=== PATIENT | male | born 1985 | race African-American/Black ===

== ENCOUNTER 2023-07-19 15:57 | Emergency (ER) | payer SELFPAY ==
[~2023-07-19] VITALS: Ht 165.1 cm; Wt 65.0 kg
[2023-07-19 16:04] VITALS: O2SAT 99
[2023-07-19] MEDS ORDERED: KETOROLAC 30MG/ML VIAL IV STA (18:34)
[2023-07-19] MEDS: SODIUM CHLORIDE 0.9% 1,000 ML IV ONE (18:45)
[2023-07-19] MEDS ORDERED: METOCLOPRAMIDE HCL 10MG/2ML VIAL IV ONE (18:45)
[2023-07-19] MEDS ORDERED: DIPHENHYDRAMINE 50MG/ML VIAL IV ONE (18:45)
[2023-07-19 19:16] LABS: BASOPHILS % 0.4 % (0.0-2.0); HEMATOCRIT. 49.3 % (42.0-52.0); HEMOGLOBIN. 16.6 g/dL (14.0-18.0); LYMPHOCYTES % 7.8 % (20.0-50.0); MEAN CORPUSCULAR HEMOGLOBIN 28.3 pg (28.0-32.0); MEAN CORPUSCULAR HGB CONC 33.7 g/dL (31.0-37.0); MEAN CORPUSCULAR VOLUME 84.1 fL (80.0-94.0); MEAN PLATELET VOLUME 8.1 fl (7.4-10.4); MONOCYTES % 3.3 % (2.0-8.0); NEUTROPHILS % 88.5 % (40.0-76.0); PLATELET 263 x1000/uL (130-400); RED BLOOD CELL COUNT 5.86 mill/uL (4.7-6.1); RED CELL DISTRIBUTION WIDTH 13.5 % (11.6-14.6); WHITE BLOOD COUNT 7.4 x1000/uL (4.5-11.0)
[2023-07-19 19:17] LABS: CHLORIDE 105 mEq/L (98-107); POTASSIUM 3.8 mEq/L (3.5-5.1); SODIUM 137 mEq/L (136-145)
[2023-07-19 19:18] LABS: CALCIUM 10.7 mg/dL (8.7-10.4); CARBON DIOXIDE 25 mEq/L (21-32)
[2023-07-19 19:20] LABS: PROTHROMBIN TIME 11.3 sec (9.6-11.0)
[2023-07-19 19:23] LABS: CREATININE 0.9 mg/dL (0.6-1.3); GLUCOSE 126 mg/dL (70-105); UREA NITROGEN BLOOD 6 mg/dL (9-23)
[2023-07-19 19:25] LABS: ALANINE AMINOTRANSFERASE 22 IU/L (10-49); ALBUMIN 5.3 g/dL (3.2-4.8); ASPARTATE AMINOTRANSFERASE 24 IU/L (<34); BILIRUBIN DIRECT 0.3 mg/dL (<=3.0)
[2023-07-19 19:26] LABS: PROTEIN TOTAL 8.1 g/dL (6.0-8.3)
[2023-07-19 19:27] LABS: ETHANOL BLOOD < 10 mg/dL (<10)
[2023-07-19 20:39] VITALS: TEMP 99.7
[2023-07-19 20:45] VITALS: BP 189/109; PULSE 52; RESP 16
[2023-07-19] MEDS: KETOROLAC 30MG/ML VIAL IV NR (20:45)
[2023-07-19] MEDS: METOCLOPRAMIDE HCL 10MG/2ML VIAL IV NR (20:45)
[2023-07-19] MEDS: DIPHENHYDRAMINE 50MG/ML VIAL IV NR (20:45)
[2023-07-19] MEDS ORDERED: IBUP-2029 MT (22:34)
[2023-07-19] MEDS ORDERED: METO5TAB86 MT (22:34)
[2023-07-19] MEDS: ONDANSETRON HCL 4MG/2ML INJ IV ONE ×2 (22:41→22:50)
== END 2023-07-19 22:45 | disposition home or self-care (01) ==
LOC: ER 15:57
DX: G43.909 Migraine, unspecified, not intractable, without status migrainosus (principal); I48.91 Unspecified atrial fibrillation; I10 Essential (primary) hypertension
CPT/HCPCS: 80076; 80048; 80320; 83690; 85025; 85610; 36415; 70450; 96361; 96374; 96375; 99285; J1200; J1885; J2765; J2405; J7030; Z7610 ×2; G0480

== ENCOUNTER 2024-01-13 19:00 | Inpatient (IN) | payer BC, MEDICAID ==
[~2024-01-13] VITALS: Ht 185.4 cm; Wt 102.1 kg
[~2024-01-13 19:00] MED LIST: IBUP-2029 MT; METO-293 MT; METO-539 MT; METO5TAB86 MT; MIRT-144 MT; NIFE-33 MT; ONDA-241 MT; PANT40TA51 PO
[2024-01-13] MEDS: PANTOPRAZOLE SODIUM 40 MG/VIAL IV SCH (19:54)
[2024-01-13] MEDS: ONDANSETRON HCL 4MG/2ML INJ IV ONE (19:54)
[2024-01-13] MEDS: SODIUM CHLORIDE 0.9% 1,000 ML IV ONE (19:58)
[2024-01-13 20:04] LABS: BASOPHILS % 0.9 % (0.0-2.0); EOSINOPHILS % 0.2 % (0.0-5.0); HEMATOCRIT. 48.6 % (42.0-52.0); HEMOGLOBIN. 16.1 g/dL (14.0-18.0); LYMPHOCYTES % 14.6 % (20.0-50.0); MEAN CORPUSCULAR HEMOGLOBIN 28.4 pg (28.0-32.0); MEAN CORPUSCULAR HGB CONC 33.1 g/dL (31.0-37.0); MEAN CORPUSCULAR VOLUME 85.8 fL (80.0-94.0); MEAN PLATELET VOLUME 8.1 fl (7.4-10.4); MONOCYTES % 5.5 % (2.0-8.0); NEUTROPHILS % 78.8 % (40.0-76.0); PLATELET 293 x1000/uL (130-400); RED BLOOD CELL COUNT 5.66 mill/uL (4.7-6.1); RED CELL DISTRIBUTION WIDTH 13.8 % (11.6-14.6); WHITE BLOOD COUNT 7.5 x1000/uL (4.5-11.0)
[2024-01-13 20:07] LABS: CHLORIDE 107 mEq/L (98-107); POTASSIUM 3.5 mEq/L (3.5-5.1); SODIUM 139 mEq/L (136-145)
[2024-01-13 20:08] LABS: CARBON DIOXIDE 21 mEq/L (21-32)
[2024-01-13 20:09] LABS: CALCIUM 9.8 mg/dL (8.7-10.4)
[2024-01-13 20:13] LABS: CREATININE 0.9 mg/dL (0.6-1.3); GLUCOSE 127 mg/dL (70-105)
[2024-01-13 20:14] LABS: PROTHROMBIN TIME 11.2 sec (9.6-11.0); UREA NITROGEN BLOOD 7 mg/dL (9-23)
[2024-01-13 20:36] LABS: ETHANOL BLOOD < 10 mg/dL (<10)
[2024-01-13] MEDS: MORPHINE SULFATE 4 MG/ML INJ (FOR IV/IM USE) IV ONE (20:41)
[2024-01-13] MEDS: HYDRALAZINE 20MG/ML VIAL IV ONE (20:42)
[2024-01-13] MEDS: CLONIDINE 0.1MG TABLET PO ONE (20:42)
[2024-01-13] MEDS: METOCLOPRAMIDE HCL 10MG/2ML VIAL IV ONE (22:30)
[2024-01-13] MEDS: NITROGLYCERIN 0.1MG/HR PATCH TOP ONE (22:31)
[2024-01-13] MEDS: HYDROMORPHONE HCL/PF 2MG/ML INJ IV ONE (22:31)
[2024-01-13] MEDS: NITROGLYCERIN 0.4MG TABLET SL SL NR (22:31)
[2024-01-13] MEDS: NITROGLYCERIN SPRAY/4.9GM CAN TL ONE (22:32)
[2024-01-14 00:50] VITALS: BP 123/81; PULSE 86; RESP 18; TEMP 36.61404; TEMP 36.6404; O2SAT 98
[2024-01-14] MEDS ORDERED: CLONIDINE 0.1MG TABLET PO PRN (01:45)
[2024-01-14] MEDS ORDERED: NON FORMULARY MED XX SCH (01:45)
[2024-01-14] MEDS ORDERED: METOCLOPRAMIDE HCL 10MG TABLET PO PRN (01:45)
[2024-01-14] MEDS ORDERED: HYDR25TA PO (01:49)
[2024-01-14] MEDS ORDERED: LISI30TA36 PO ×2 (01:49)
[2024-01-14] MEDS ORDERED: SUCR1TAB PO (01:49)
[2024-01-14] MEDS: PIPERACILLIN/TAZO 3.375G/50ML 50 ML IV SCH (03:44)
[2024-01-14 04:00] VITALS: BP 108/75; PULSE 87; RESP 20; TEMP 36.78072; O2SAT 98
[2024-01-14] MEDS: ACETAMINOPHEN 325MG TABLET PO PRN (05:10)
[2024-01-14] MEDS: ONDANSETRON HCL 4MG/2ML INJ IV PRN (06:16)
[2024-01-14] MEDS ORDERED: PANTOPRAZOLE 40MG DR TABLET PO SCH (07:40)
[2024-01-14 08:00] VITALS: BP 144/92; PULSE 66; RESP 20; TEMP 36.78072; O2SAT 100
[2024-01-14] MEDS: SUCRALFATE 1G TABLET PO SCH (09:36)
[2024-01-14] MEDS: LISINOPRIL 10MG TABLET PO SCH (09:37)
[2024-01-14] MEDS: ENOXAPARIN 40MG/0.4ML SYR SUBCUT SCH (09:37)
[2024-01-14] MEDS: NIFEDIPINE XL 30MG TAB PO SCH (09:38)
[2024-01-14] MEDS: HYDROCHLOROTHIAZIDE 25MG TABLET PO SCH (09:39)
[2024-01-14] MEDS: METOPROLOL TARTRATE 50MG TABLET PO SCH (09:40)
[2024-01-14 10:57] LABS: BASOPHILS % 0.2 % (0.0-2.0); HEMATOCRIT. 47.2 % (42.0-52.0); HEMOGLOBIN. 15.1 g/dL (14.0-18.0); LYMPHOCYTES % 9.1 % (20.0-50.0); MEAN CORPUSCULAR HEMOGLOBIN 27.2 pg (28.0-32.0); MEAN CORPUSCULAR HGB CONC 32.1 g/dL (31.0-37.0); MEAN PLATELET VOLUME 7.7 fl (7.4-10.4); NEUTROPHILS % 84.7 % (40.0-76.0); PLATELET 312 x1000/uL (130-400); RED BLOOD CELL COUNT 5.56 mill/uL (4.7-6.1); RED CELL DISTRIBUTION WIDTH 13.8 % (11.6-14.6); WHITE BLOOD COUNT 10.3 x1000/uL (4.5-11.0)
[2024-01-14 11:05] LABS: CHLORIDE 105 mEq/L (98-107)
[2024-01-14 11:06] LABS: CARBON DIOXIDE 24 mEq/L (21-32); POTASSIUM 3.4 mEq/L (3.5-5.1); SODIUM 138 mEq/L (136-145)
[2024-01-14 11:07] LABS: CALCIUM 9.7 mg/dL (8.7-10.4)
[2024-01-14 11:11] LABS: CREATININE 0.9 mg/dL (0.6-1.3)
[2024-01-14 11:12] LABS: GLUCOSE 108 mg/dL (70-105); UREA NITROGEN BLOOD 6 mg/dL (9-23)
[2024-01-14] MEDS: METOCLOPRAMIDE HCL 10MG/2ML VIAL IV PRN (11:44)
[2024-01-14 11:49] VITALS: BP 158/104; PULSE 60; RESP 18; TEMP 36.61404; O2SAT 97
[2024-01-14] MEDS ORDERED: HYDRALAZINE 20MG/ML VIAL IV PRN (13:30)
[2024-01-14 15:58] VITALS: BP 144/114; PULSE 79; RESP 18; TEMP 36.72516; O2SAT 99
[2024-01-14 20:00] VITALS: BP 150/84; PULSE 89; RESP 20; TEMP 36.89184; O2SAT 95
[2024-01-14] MEDS: MIRTAZAPINE 15MG TABLET PO PRN (20:06)
[2024-01-14] MEDS: INFLUENZA VACCINE 05/PF 0.5 ML SYRINGE IM ONE (20:10)
[2024-01-14 21:07] LABS: CLARITY URINE CLEAR (CLEAR); COLOR URINE YELLOW (YELLOW); GLUCOSE URINE NEGATIVE (NEGATIVE); KETONES URINE 1+ (NEGATIVE); LEUKOCYTE ESTERASE URINE NEGATIVE (NEGATIVE); NITRITE URINE NEGATIVE (NEGATIVE); OCCULT BLOOD URINE NEGATIVE (NEGATIVE); PROTEIN URINE NEGATIVE (NEGATIVE); SPECIFIC GRAVITY URINE 1.022 (1.005-1.030); UROBILINOGEN URINE 0.2 E.U./dL (0.2-1.0)
[2024-01-14 21:24] LABS: *AMPHETAMINES SCREEN URINE NEGATIVE (NEGATIVE); *BARBITURATES SCREEN URINE NEGATIVE (NEGATIVE); *BENZODIAZEPINES SCREEN URINE NEGATIVE (NEGATIVE); *COCAINE SCREEN URINE NEGATIVE (NEGATIVE); CANNABINOID URINE SCREEN PRESUMPTIVE POSITIVE (NEGATIVE); ECSTASY MDMA SCREEN URINE NEGATIVE (NEGATIVE); METHADONE URINE SCREEN NEGATIVE (NEGATIVE); OPIATES URINE SCREEN PRESUMPTIVE POSITIVE (NEGATIVE); PHENCYCLIDINE URINE SCREEN NEGATIVE (NEGATIVE)
[2024-01-15] VITALS: BP 123/75; PULSE 74; RESP 18; TEMP 36.78072; O2SAT 98
[2024-01-15 04:00] VITALS: BP 146/103; PULSE 70; RESP 20; TEMP 36.50292; O2SAT 99
[2024-01-15 08:00] VITALS: BP 144/96; PULSE 78; RESP 18; TEMP 37.89192; O2SAT 97
[2024-01-15 12:00] VITALS: BP 141/89; PULSE 66; RESP 18; TEMP 37.2252; TEMP 37.22520; O2SAT 97
[2024-01-15 15:54] VITALS: BP 141/89; PULSE 66; TEMP 99; O2SAT 97
== END 2024-01-15 16:45 | disposition home or self-care (01) | DRG 241 ==
LOC: ER 19:00 → EDBEDREQ 22:08 → 7WST 22:37 → EDBEDREQ 22:50 → EDBEDREQTM 22:50
PROVIDERS: ADMIT Internal Medicine; ATTEND Internal Medicine
DX: K29.20 Alcoholic gastritis without bleeding (principal); G89.29 Other chronic pain; I16.0 Hypertensive urgency; K21.9 Gastro-esophageal reflux disease without esophagitis; K27.9 Peptic ulcer, site unspecified, unspecified as acute or chronic, without hemorrhage or perforation; I48.0 Paroxysmal atrial fibrillation; I10 Essential (primary) hypertension; R07.89 Other chest pain; Z71.51 Drug abuse counseling and surveillance of drug abuser
CPT/HCPCS: 36415; 80048; 80305; 80320; 81003; 85025; 90686; 99285; J0360; J1171; J1650; J2270; J2405; J2470; J2543; J2765; J7030; G0480

== ENCOUNTER 2024-02-06 20:19 | Emergency (ER) | payer BC ==
[~2024-02-06] VITALS: Ht 182.9 cm; Wt 114.0 kg
[~2024-02-06 20:19] MED LIST changes: +HYDR25TA PO; +LISI30TA36 PO; +SUCR1TAB PO
[2024-02-06 20:22] VITALS: O2SAT 96
[2024-02-06] MEDS: ACETAMINOPHEN 325MG TABLET PO STA (20:54)
[2024-02-06] MEDS: KETOROLAC 30MG/ML VIAL IV STA (20:54)
[2024-02-06] MEDS: ONDANSETRON HCL 4MG/2ML INJ IV STA (20:54)
[2024-02-06] MEDS: SODIUM CHLORIDE 0.9% 1,000 ML IV ONE (21:05)
[2024-02-06 21:21] LABS: BASOPHILS % 0.8 % (0.0-2.0); DIFFERENTIAL COMMENT 1; HEMATOCRIT. 49.2 % (42.0-52.0); HEMOGLOBIN. 16.6 g/dL (14.0-18.0); LYMPHOCYTES % 10.9 % (20.0-50.0); MEAN CORPUSCULAR HEMOGLOBIN 28.2 pg (28.0-32.0); MEAN CORPUSCULAR HGB CONC 33.7 g/dL (31.0-37.0); MEAN CORPUSCULAR VOLUME 83.5 fL (80.0-94.0); MONOCYTES % 3.8 % (2.0-8.0); NEUTROPHILS % 84.5 % (40.0-76.0); PLATELET 314 x1000/uL (130-400); RED CELL DISTRIBUTION WIDTH 13.7 % (11.6-14.6); WHITE BLOOD COUNT 6.7 x1000/uL (4.5-11.0)
[2024-02-06 21:27] LABS: CHLORIDE 105 mEq/L (98-107); POTASSIUM 3.5 mEq/L (3.5-5.1); SODIUM 139 mEq/L (136-145)
[2024-02-06 21:28] LABS: CALCIUM 10.2 mg/dL (8.7-10.4); CARBON DIOXIDE 22 mEq/L (21-32)
[2024-02-06 21:31] LABS: INR 1.1; PROTHROMBIN TIME 11.9 sec (9.6-11.0)
[2024-02-06 21:33] LABS: CREATININE 0.8 mg/dL (0.6-1.3); GLUCOSE 115 mg/dL (70-105); UREA NITROGEN BLOOD 8 mg/dL (9-23)
[2024-02-06 21:35] LABS: ALANINE AMINOTRANSFERASE 42 IU/L (10-49); ALBUMIN 5.4 g/dL (3.2-4.8); ASPARTATE AMINOTRANSFERASE 34 IU/L (<34); BILIRUBIN DIRECT 0.2 mg/dL (<=3.0); BILIRUBIN TOTAL 0.7 mg/dL (0.1-1.0); PROTEIN TOTAL 8.7 g/dL (6.0-8.3)
[2024-02-06 21:41] LABS: TROPONIN I HIGH SENSITIVITY < 4 ng/L (3.0-53)
[2024-02-06 22:30] VITALS: BP 182/99; PULSE 77; RESP 20; TEMP 36.89184; O2SAT 98
[2024-02-06] MEDS: MAGNESIUM/ALUMINUM HYDROXIDE/SIMETHICONE 30ML UDC PO ONE (23:07)
[2024-02-06] MEDS: ONDANSETRON 4MG ODT PO ONE (23:07)
[2024-02-06 23:53] LABS: TROPONIN I HIGH SENSITIVITY < 4 ng/L (3.0-53)
[2024-02-07] MEDS ORDERED: ONDA-239 PO (00:02)
== END 2024-02-07 00:58 | disposition home or self-care (01) ==
LOC: ER 20:19
DX: K52.9 Noninfective gastroenteritis and colitis, unspecified (principal); I48.91 Unspecified atrial fibrillation; I11.9 Hypertensive heart disease without heart failure; Z79.899 Other long term (current) drug therapy
CPT/HCPCS: 80076; 80048; 83690; 85025; 85610; 84484; 36415; 71045; 74176; 93005; 96361; 96374; 96375; 99285; Q0162; J1885; J2405; J7030; Z7610 ×2

== ENCOUNTER 2024-09-29 14:34 | Emergency (ER) | payer BC ==
[~2024-09-29] VITALS: Ht 188 cm; Wt 100.0 kg
[~2024-09-29 14:34] MED LIST changes: +ONDA-239 PO
[2024-09-29 14:36] VITALS: O2SAT 99
[2024-09-29] MEDS: MORPHINE SULFATE 4 MG/ML INJ (FOR IV/IM USE) IV ONE (15:15)
[2024-09-29] MEDS: METOCLOPRAMIDE HCL 10MG/2ML VIAL IV ONE (15:15)
[2024-09-29] MEDS: ONDANSETRON HCL 4MG/2ML INJ IV ONE (15:15)
[2024-09-29] MEDS: SODIUM CHLORIDE 0.9% 1,000 ML IV ONE (15:16)
[2024-09-29 15:51] LABS: BASOPHILS % 0.5 % (0.0-2.0); EOSINOPHILS % 0.2 % (0.0-5.0); HEMATOCRIT. 47.4 % (42.0-52.0); HEMOGLOBIN. 16.3 g/dL (14.0-18.0); LYMPHOCYTES % 15.2 % (20.0-50.0); MEAN PLATELET VOLUME 7.8 fl (7.4-10.4); MONOCYTES % 7.0 % (2.0-8.0); NEUTROPHILS % 77.1 % (40.0-76.0); PLATELET 288 x1000/uL (130-400); RED BLOOD CELL COUNT 5.77 mill/uL (4.7-6.1); RED CELL DISTRIBUTION WIDTH 14.1 % (11.6-14.6)
[2024-09-29 16:03] LABS: INR 1.1
[2024-09-29 16:12] LABS: CREATININE 0.9 mg/dL (0.6-1.3)
[2024-09-29 16:13] LABS: ETHANOL BLOOD < 10 mg/dL (<10); TROPONIN I HIGH SENSITIVITY < 4 ng/L (3.0-53); UREA NITROGEN BLOOD 6 mg/dL (9-23)
[2024-09-29 16:14] LABS: ASPARTATE AMINOTRANSFERASE 23 IU/L (<34)
[2024-09-29 16:15] LABS: BILIRUBIN DIRECT 0.2 mg/dL (<=3.0); BILIRUBIN TOTAL 0.8 mg/dL (0.1-1.0); PROTEIN TOTAL 7.7 g/dL (6.0-8.3)
[2024-09-29 18:30] VITALS: TEMP 36.9
[2024-09-29 19:07] LABS: *AMPHETAMINES SCREEN URINE NEGATIVE (NEGATIVE); *BARBITURATES SCREEN URINE NEGATIVE (NEGATIVE); *BENZODIAZEPINES SCREEN URINE NEGATIVE (NEGATIVE); *COCAINE SCREEN URINE NEGATIVE (NEGATIVE); CANNABINOID URINE SCREEN PRESUMPTIVE POSITIVE (NEGATIVE); ECSTASY MDMA SCREEN URINE NEGATIVE (NEGATIVE); METHADONE URINE SCREEN NEGATIVE (NEGATIVE); OPIATES URINE SCREEN PRESUMPTIVE POSITIVE (NEGATIVE); PHENCYCLIDINE URINE SCREEN NEGATIVE (NEGATIVE)
[2024-09-29 19:31] LABS: TROPONIN I HIGH SENSITIVITY < 4 ng/L (3.0-53)
[2024-09-29] MEDS: CLONIDINE 0.1MG TABLET PO ONE (19:37)
[2024-09-29 20:25] VITALS: BP 158/87; PULSE 81; RESP 16; O2SAT 99
[2024-09-29] MEDS ORDERED: IOHEXOL-350 100 ML BOTTLE ONE (21:04)
== END 2024-09-29 20:28 | disposition home or self-care (01) ==
LOC: ER 14:34 → EDBEDREQTM 16:18 → EDBEDREQ 16:18 → ENRESERV 17:35 → CANRESERV 17:35 → ENRESERV 17:54 → CANRESERV 17:54 → CANBEDREQ 19:45 → ER 20:28
DX: R07.89 Other chest pain (principal); I10 Essential (primary) hypertension; Z79.899 Other long term (current) drug therapy
CPT/HCPCS: 80076; 80305; 80048; 80320; 83690; 83735; 85025; 85379; 85610; 85730; 84484; 36415; 71045; 71275; 93005; 96361; 96374; 96375; 99285; Q9967; J2765; J2405; J2270; J7030; Z7610 ×2; A4606; G0480

== ENCOUNTER 2024-11-12 18:10 | Emergency (ER) | payer BC ==
[~2024-11-12] VITALS: Ht 177.8 cm; Wt 100.0 kg
[~2024-11-12 18:10] MED LIST changes: +IBUP-1455 MT; -IBUP-2029 MT
[2024-11-12 18:11] VITALS: O2SAT 99
[2024-11-12] MEDS: PANTOPRAZOLE SODIUM 40 MG/VIAL IV ONE (19:45)
[2024-11-12] MEDS: ONDANSETRON HCL 4MG/2ML INJ IV ONE (19:46)
[2024-11-12] MEDS: SODIUM CHLORIDE 0.9% 1,000 ML IV ONE (19:46)
[2024-11-12] MEDS: MORPHINE SULFATE 4 MG/ML INJ (FOR IV/IM USE) IV ONE (19:46)
[2024-11-12 19:55] LABS: BASOPHILS % 0.9 % (0.0-2.0); EOSINOPHILS % 0.7 % (0.0-5.0); HEMATOCRIT. 47.5 % (42.0-52.0); HEMOGLOBIN. 15.8 g/dL (14.0-18.0); LYMPHOCYTES % 21.5 % (20.0-50.0); MEAN PLATELET VOLUME 8.5 fl (7.4-10.4); MONOCYTES % 5.8 % (2.0-8.0); NEUTROPHILS % 71.1 % (40.0-76.0); PLATELET 340 x1000/uL (130-400); RED BLOOD CELL COUNT 5.80 mill/uL (4.7-6.1); RED CELL DISTRIBUTION WIDTH 14.7 % (11.6-14.6)
[2024-11-12 20:02] LABS: CREATININE 1.1 mg/dL (0.6-1.3); UREA NITROGEN BLOOD 7 mg/dL (9-23)
[2024-11-12 20:04] LABS: ASPARTATE AMINOTRANSFERASE 62 IU/L (<34); BILIRUBIN DIRECT 0.2 mg/dL (<=3.0); BILIRUBIN TOTAL 0.8 mg/dL (0.1-1.0); PROTEIN TOTAL 7.7 g/dL (6.0-8.3)
[2024-11-12 21:53] LABS: CLARITY URINE CLEAR (CLEAR); COLOR URINE YELLOW (YELLOW); GLUCOSE URINE NEGATIVE (NEGATIVE); KETONES URINE 1+ (NEGATIVE); LEUKOCYTE ESTERASE URINE NEGATIVE (NEGATIVE); NITRITE URINE NEGATIVE (NEGATIVE); OCCULT BLOOD URINE TRACE (NEGATIVE); PH URINE 7.5 (4.5-8.0); PROTEIN URINE NEGATIVE (NEGATIVE); SPECIFIC GRAVITY URINE 1.035 (1.005-1.030); UROBILINOGEN URINE 0.2 E.U./dL (0.2-1.0)
[2024-11-12 22:02] LABS: *AMPHETAMINES SCREEN URINE NEGATIVE (NEGATIVE); *BARBITURATES SCREEN URINE NEGATIVE (NEGATIVE); *BENZODIAZEPINES SCREEN URINE NEGATIVE (NEGATIVE); *COCAINE SCREEN URINE NEGATIVE (NEGATIVE); METHADONE URINE SCREEN NEGATIVE (NEGATIVE); OPIATES URINE SCREEN PRESUMPTIVE POSITIVE (NEGATIVE); PHENCYCLIDINE URINE SCREEN NEGATIVE (NEGATIVE)
[2024-11-12 22:03] LABS: CANNABINOID URINE SCREEN PRESUMPTIVE POSITIVE (NEGATIVE); ECSTASY MDMA SCREEN URINE NEGATIVE (NEGATIVE)
[2024-11-12] MEDS: ONDANSETRON HCL 4MG/2ML INJ IV NR (22:05)
[2024-11-12 22:08] LABS: RBC URINE 0-2 /hpf (0-2); SQUAMOUS EPITHELIAL CELL URINE 1+ /lpf (RARE/1+); WBC URINE 0-2 /hpf (0-2)
[2024-11-12 22:09] LABS: BACTERIA URINE 1+
[2024-11-12] MEDS: HALOPERIDOL LACTATE 5MG/ML VIAL IM ONE (22:37)
[2024-11-12] MEDS: IOHEXOL-300 100 ML BOTTLE ONE (23:55)
[2024-11-13] MEDS: LABETALOL 5MG/ML 4ML INJ IV ONE (01:11)
[2024-11-13 01:45] VITALS: BP 172/109; PULSE 67; RESP 18; TEMP 36.7; O2SAT 99
== END 2024-11-13 02:12 | disposition short-term general hospital (02) ==
LOC: ER 18:10 → EDBEDREQTM 11-13 01:28 → EDBEDREQ 11-13 01:28 → EDBEDREQSVC 11-13 01:28 → ER 11-13 02:12 → CMPBEDREQ 11-13 07:47
DX: R10.33 Periumbilical pain (principal); R10.13 Epigastric pain; I10 Essential (primary) hypertension; I48.91 Unspecified atrial fibrillation; Z79.899 Other long term (current) drug therapy; Z90.49 Acquired absence of other specified parts of digestive tract
CPT/HCPCS: 80076; 80305; 80048; 81003; 83690; 85025; 36415; 74177; 96361; 96365; 96372; 96375 ×2; 96376; 99285; 93005; Q9967; J1630; J2405; J2470; J2270; J7030; Z7610 ×2; J3490